=== PATIENT | female | born 1990 | race African-American/Black ===

== ENCOUNTER 2021-02-02 02:50 | Emergency (ER) | payer OTHER ==
[~2021-02-02] VITALS: Ht 170.2 cm; Wt 68.0 kg
[2021-02-02] MEDS ORDERED: DIFLUCAN150 M1 PO (03:11)
[2021-02-02] MEDS ORDERED: METHYLPREDNISOL32 MG PO (03:11)
[2021-02-02 04:09] LABS: URINE BILIRUBIN NEGATIVE (Negative); URINE BLOOD 1+ (Negative); URINE CLARITY CLEAR; URINE COLOR YELLOW; URINE GLUCOSE-RANDOM NEGATIVE (Negative); URINE KETONES NEGATIVE (Negative); URINE LEUKOCYTES-REFLEX 1+ (Negative); URINE NITRITE-REFLEX NEGATIVE (Negative); URINE PROTEIN NEGATIVE (Negative)
[2021-02-02] MEDS ORDERED: ACETAMINOPHEN-1 EAC2 PO (04:24)
[2021-02-02] MEDS ORDERED: FLAGYL500 M1 PO (04:24)
[2021-02-02] MEDS ORDERED: LIDOCAINE 2%2 %/5 GM TOP (04:27)
[2021-02-02 04:37] LABS: CASTS None Seen /LPF (None Seen); SQUAMOUS >10 Many /LPF (0-3)
[2021-02-02 04:39] LABS: BACTERIA-REFLEX 1-9 Few /HPF (None Seen); CRYSTALS None Seen /LPF (None Seen); URINE RBC 3-10 Few /HPF (0-2); URINE WBC-REFLEX 0-5 Rare /HPF (0-5)
[2021-02-02 04:44] VITALS: BP 130/68
== END 2021-02-02 04:44 | disposition home or self-care (01) ==
LOC: M.ERS 02:50
PROVIDERS: Personal Emergency Response Attendant
DX: N76.0 Acute vaginitis (principal); B96.89 Other specified bacterial agents as the cause of diseases classified elsewhere; Z79.899 Other long term (current) drug therapy